=== PATIENT | female | born 1980 | race Caucasian/White ===

== ENCOUNTER → 2017-07-10 | Outpatient (CLI) | payer BC | LOC: FIMAGING 08:17 | PROVIDERS: ATTEND Surgery | DX: Z12.31 Encounter for screening mammogram for malignant neoplasm of breast (principal); D24.2 Benign neoplasm of left breast | CPT/HCPCS: G0202 ==

== ENCOUNTER 2018-07-23 11:15 | Observation (INO) | payer BC ==
[2018-07-23] MEDS ORDERED: LOPERAMIDE HCL 2 MG CAP PO PRN (11:35)
[2018-07-23] MEDS ORDERED: ONDANSETRON 4 MG/2 ML VIAL IVP PRN (11:36)
[2018-07-23] MEDS ORDERED: LR 1,000 ML IV SCH (12:00)
[2018-07-23 12:27] LABS: PLATELET COUNT 218 10^3/uL (150-400)
[2018-07-23] MEDS ORDERED: ONDANSETRON 4 MG/2 ML VIAL ONE (12:36)
--- NOTE | 2018-07-23 13:18 | PDGENHP ---
History and Physical History and Physical: CARE: [facility] HPI: Patient is a 37 yo G 3 P 1 at 38.1 wks ega who presents to L&D with complaints of diarrhea and worsening nausea/vomiting or last 2 days. Is able to eat/drink , but states she has vomited X2, and has just felt constant nausea. She last had a loose stool at 7 am this morning. Denies being exposed to anyone with a GI illness, although was at a public pool with her family just before her symptoms started. Endorses good activity, denies LOF and VB. Had gestational hypertension with previous , is taking baby ASA daily - has been checking BP at home regularly and states her values run typically 120s/ 70s. BP in office this AM was 148/72 after a cervical exam and told she was being sent to the hospital. She has a history of a labile BP that is easily affected by stress/anxiety. She does endorse a mild headache today. EDC: 08/05/18 which is based on LMP: 10/29/17 which is known and consistent with Ultrasound at 8 weeks. 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 - Prepregnancy BMI 41 - Low lying placenta - resolved at 28 weeks - h/p pp anxiety after first delivery - was treated with Zoloft (not currently treated) - h/o migraines - AMA - h/o gestational hypertension with first Review of Systems: Constitutional: Denies any fever, chills, or fatigue HEENT: denies any visual changes, difficulty swallowing, hearing loss Cardiovascular: Denies any chest pain, palpitations, leg swelling Respiratory: denies any cough, wheezing, or shortness of breathe GI: see HPI : denies any dysuria, urgency, frequency, vaginal bleeding Musculoskeletal: denies any muscle or bone pain Skin: denies any rashes Neuro: endorse a mild headache, denies lightheadedness, dizziness, or loss of consciousness Psychiatric: denies any depression, anxiety, or SI/HI thoughts HISTORY: Previous OB history: Term 41 weeks 2016 - gestational hypertension and pp anxiety Past medical history: Lu's thyroiditis, migraines, gluten intolerance Past surgical history: 2018 - breast bx - benign Family history: non-relevant Medications: PNV, Tirosint, baby ASA Allergies (list reaction): NKDA LABS: Rh: O pos ABS: Neg Rubella: Immune HbsAg: NR HIV: NR VDRL: NR 1hr: 96 GC: Neg Chlamydia: Neg Pap: 2/18 Normal GBS: neg BMI: (prepreg) 41 PHYSICAL EXAM: Constitutional: WN, A&Ox3 Skin: pink, warm, dry HEENT: normocephalic atraumatic, supple Heart: RRR, no murmur Chest: CTA-B Abdomen: Soft, nontender, gravid SVE: deferred Extremities: scant pedal edema, negative dayanara's sign Neuro: grossly normal Psych: normal affect assessment: Reassuring FHTs, baseline 130s +accels, no decels, moderate variability Contractions: toco rare contx Assessment: 1) 37 yo G 2 P 1 with IUP@ 38.1 weeks ega 2) 2 day nausea/vomiting/diarrhea - likely GI virus - feels better after zofran and 1 liter IV fluids 3) Meets criteria for preeclampsia - 2 additional BP values with systolic BP > 140, P/C ratio .56 - all other PE labs WNL 4) Category 1 EFM Plan: IOL recommended at this time due to pre-eclampsia - patient declines today due to issues with childcare and would like to wait until GI disturbance improves. Risks of delayed induction/delivery reviewed including worsening pre -eclampsia , eclampsia, pulmonary edema, brain injury, impaired liver and kidney function, risk to fetus, patient. Patient chooses to go home now - Will return to office in AM for NST and IOL tomorrow tadeo with cytotec ripening overnight. Will monitor BP at home and call with any BP's > 140/90, decreased movement, headache unresolved with Tylenol, epigastric pain, visual disturbances or increased edema.
== END 2018-07-23 16:30 | disposition home or self-care (01) ==
LOC: FLD 11:15
PROVIDERS: ADMIT Advanced Practice Midwife; ATTEND Advanced Practice Midwife
DX: R51 Headache (principal); R11.2 Nausea with vomiting, unspecified; E06.3 Autoimmune thyroiditis; Z3A.38 38 weeks gestation of pregnancy
CPT/HCPCS: 59025; G0378; J2405

== ENCOUNTER 2018-07-24 11:15 | Inpatient (IN) | payer BC ==
[2018-07-24] MEDS ORDERED: TERBUTALINE SULFATE 1 MG/ML VIAL IV PRN (11:39)
[2018-07-24] MEDS ORDERED: OXYTOCIN/RINGERS LACTATE 1,000 ML IV PRN (11:39)
[2018-07-24] MEDS ORDERED: OLIVE OIL 118 ML BTL MISC PRN (11:39)
[2018-07-24] MEDS ORDERED: IBUPROFEN 600 MG TAB PO PRN (11:39)
[2018-07-24] MEDS ORDERED: LIDOCAINE 1% 300 MG/30 ML SDV SC PRN (11:39)
[2018-07-24] MEDS ORDERED: EPSOM SALT 454 GM TP PRN (11:39)
[2018-07-24] MEDS ORDERED: MISOPROSTOL 200 MCG TAB PR PRN (11:39)
--- NOTE | 2018-07-24 12:35 | PDGENHP ---
History and Physical History and Physical: [facility] Patient Name: LIANG ANG Rpt#: [id number] Unit Number: [id number] Attending: Clara Marin Adm Date: 07/23/18 ____ History and Physical History and Physical: CARE: [facility] HPI: Patient is a 37 yo G 3 P 1 at 38.1 wks ega who presents to L&D for induction of labor d/t elevated BP at term. Nausea and vomiting have resolved since yesterdays visit. Her NST was reactive in office today. Pt reports good activity, denies LOF and VB. Had gestational hypertension with previous , is taking baby ASA daily - has been checking BP at home regularly and states her values run typically 120s/70s. BP in office this AM was 161/92 told she was being sent to the hospital for induction of labor instead of waiting until tonight. She has a history of a labile BP that is easily affected by stress/anxiety. She does report a mild headache today. She is tolerating PO hydration and eating a BRAT diet today. EDC: 08/05/18 which is based on LMP: 10/29/17 which is known and consistent with Ultrasound at 8 weeks. 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 - Prepregnancy BMI 41 - Low lying placenta - resolved at 28 weeks - h/p pp anxiety after first delivery - was treated with Zoloft (not currently treated) - h/o migraines - AMA - h/o gestational hypertension with first Review of Systems: Constitutional: Denies any fever, chills, or fatigue HEENT: denies any visual changes, difficulty swallowing, hearing loss Cardiovascular: Denies any chest pain, palpitations, leg swelling Respiratory: denies any cough, wheezing, or shortness of breathe GI: see HPI : denies any dysuria, urgency, frequency, vaginal bleeding Musculoskeletal: denies any muscle or bone pain Skin: denies any rashes Neuro: endorse a mild headache, denies lightheadedness, dizziness, or loss of consciousness Psychiatric: denies any depression, anxiety, or SI/HI thoughts HISTORY: Previous OB history: Term 41 weeks 2016 - gestational hypertension and pp anxiety Past medical history: Lu's thyroiditis, migraines, gluten intolerance Past surgical history: 2018 - breast bx - benign Family history: non-relevant Medications: PNV, Tirosint, baby ASA Allergies (list reaction): NKDA LABS: Rh: O pos ABS: Neg Rubella: Immune HbsAg: NR HIV: NR VDRL: NR 1hr: 96 GC: Neg Chlamydia: Neg Pap: 2/18 Normal GBS: neg BMI: (prepreg) 41 PHYSICAL EXAM: Constitutional: WN, A&Ox3 Skin: pink, warm, dry HEENT: normocephalic atraumatic, supple Heart: RRR, no murmur Chest: CTA-B Abdomen: Soft, nontender, gravid SVE: deferred Extremities: scant pedal edema, negative dayanara's sign Neuro: grossly normal Psych: normal affect assessment: Reassuring FHTs, baseline 130s +accels, no decels, moderate variability Contractions: toco occasional contx Assessment: 1) 37 yo G 2 P 1 with IUP@ 38.1 weeks ega 2) Meets criteria for preeclampsia - 2 additional BP values with systolic BP > 140, P/C ratio .56 - all other PE labs WNL 4) Category 1 EFM Plan: IOL recommended at this time due to pre-eclampsia. Serial BP wnl since arrival at hospital. Anticipate . Plan discussed with Danya Carvalho MD and she agrees with plan.
[2018-07-24 12:50] LABS: PLATELET COUNT 216 10^3/uL (150-400)
[2018-07-24] MEDS: LR 1,000 ML IV PRN (13:43)
[2018-07-24] MEDS: MISOPROSTOL 25 MCG CAP VG PRN ×2 (15:15→19:37)
[2018-07-24] MEDS ORDERED: PROMETHAZINE HCL 25 MG/ML INJ IVP PRN (15:49)
--- NOTE | 2018-07-24 15:52 | SOAPPROG ---
SOAP Progress Note Assessment/Plan: Assessment: 1) Term IUP 2) Elevated BP 3) Medical induction of labor Plan: 1) Cytotec for cervical ripening. 07/24/18 15:50 07/24/18 15:56 Subjective: Pt comfortable. Denies contractions. FOB and Business Account Leader at bedside for support. Objective: Laboratory Results 07/24/18 12:30 07/24/18 12:30 VSS at this time. - Pending Discharge Pending Discharge Within 24 Hours: No Physical Exam - Physical Exam General Appearance: alert, no apparent distress ICD10 Worksheet Patient Problems: Problems Problem Status Onset AMA (advanced maternal age) multigravida 35+ Acute Elevated blood pressure affecting in third trimester, antepartum Acute Hypothyroidism Acute Obesity complicating in third trimester Acute Term Acute
[2018-07-24] MEDS ORDERED: AMMONIA AROMATIC 1 EACH AMP IH ONE (20:09)
[2018-07-24] MEDS ORDERED: LIDOCAINE 1% 300 MG/30 ML SDV ONE (20:09)
[2018-07-24] MEDS ORDERED: TERBUTALINE SULFATE 1 MG/ML VIAL ONE (20:09)
[2018-07-24] MEDS ORDERED: OLIVE OIL 118 ML BTL ONE (20:09)
[2018-07-24] MEDS ORDERED: OXYTOCIN 10 UNIT/ML VIAL ONE (20:10)
[2018-07-24] MEDS ORDERED: MISOPROSTOL 200 MCG TAB ONE (20:10)
--- NOTE | 2018-07-24 22:54 | OBPROG ---
Labor Progress Note Assessment/Plan: Assessment: 1) Term IUP 2) Elevated BP 3) Medical induction of labor Plan: 1) Cytotec for cervical ripening. 07/24/18 15:50 07/24/18 15:56 Subjective/Intrapartum Course: 07/24/18 22:52 Pt feeling more uterine cramping. Coping well with family and genomics scientist support. Denies LOF, VB. Objective: 07/24/18 12:30 07/24/18 12:30 Patient ABO/Rh O POSITIVE 07/24/18 12:30 Uric Acid 5.2 mg/dL (2.5-6.8) 07/24/18 12:30 Total Bilirubin 0.3 mg/dL (0.1-1.4) 07/24/18 12:30 Conjugated Bilirubin 0.0 mg/dL (0.0-0.5) 07/24/18 12:30 Unconjugated Bilirubin 0.3 mg/dL (0.0-1.1) 07/24/18 12:30 AST 29 IU/L (14-46) 07/24/18 12:30 ALT 33 IU/L (9-52) 07/24/18 12:30 Lactate Dehydrogenase 456 IU/L (313-618) 07/24/18 12:30 - SVE Dilation (cm): 2 Effacement (%): 50 Station: -2 Membranes: Intact - Contraction Pattern Assessment Current Contraction Pattern: Irregular - FHR Assessment Ritchie FHR (bpm): 125 FHR Pattern Variability: Moderate FHR Category: 1 - AP Antepartum Course: 07/24/18 22:54 Plan pitocin at 7 AM. Oxytocin Orders Assessment - Pre-Induction/Augmentation Assessment Gestational Age: 38 week(s) and 2 day(s) ICD10 Worksheet Patient Problems: Problems Problem Status Onset AMA (advanced maternal age) multigravida 35+ Acute Elevated blood pressure affecting in third trimester, antepartum Acute Hypothyroidism Acute Obesity complicating in third trimester Acute Term Acute
[2018-07-24] MEDS ORDERED: LR 500 ML IV PRN (22:56)
[2018-07-24] MEDS ORDERED: OXYTOCIN/RINGERS LACTATE 500 ML IV SCH (23:00)
[2018-07-25] MEDS: LEVOTHYROXINE SODIUM 125 MCG PO SCH (07:12)
[2018-07-25] MEDS: LR 1,000 ML IV PRN (08:06)
--- NOTE | 2018-07-25 08:44 | OBPROG ---
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 Coping well with family and face boss support. Denies LOF, VB. 07/25/18 10:10 Pt doing well, she is breathing through contractions, but states pain is 4/10. She does not desires any pain medication at this time. She states she was able to sleep some last night. FOB @ BS and supportive. carlton Strong, supportive. Objective: 07/24/18 12:30 07/24/18 12:30 Patient ABO/Rh O POSITIVE 07/24/18 12:30 Uric Acid 5.2 mg/dL (2.5-6.8) 07/24/18 12:30 Total Bilirubin 0.3 mg/dL (0.1-1.4) 07/24/18 12:30 Conjugated Bilirubin 0.0 mg/dL (0.0-0.5) 07/24/18 12:30 Unconjugated Bilirubin 0.3 mg/dL (0.0-1.1) 07/24/18 12:30 AST 29 IU/L (14-46) 07/24/18 12:30 ALT 33 IU/L (9-52) 07/24/18 12:30 Lactate Dehydrogenase 456 IU/L (313-618) 07/24/18 12:30 - SVE Dilation (cm): 3 Effacement (%): 50 Station: -2 Membranes: Intact (membranes swept) - Contraction Pattern Assessment Current Contraction Pattern: Irregular - AP Antepartum Course: 07/24/18 22:54 Plan pitocin at 7 AM. Oxytocin Orders Assessment - Pre-Induction/Augmentation Assessment Presentation: Vertex Gestational Age: 38 week(s) and 2 day(s) Gestational Age Determined By: Ultrasound, Last Menstral Period Membrane Status: Intact Current Contraction Pattern: Irregular - Haley's Score Dilation: 3-4cm Effacement: 40-50 Station: -2 Cervix: Medium Cervix Position: Mid Haley Score Total: 6 ICD10 Worksheet Patient Problems: Problems Problem Status Onset AMA (advanced maternal age) multigravida 35+ Acute Elevated blood pressure affecting in third trimester, antepartum Acute Hypothyroidism Acute Obesity complicating in third trimester Acute Term Acute
--- NOTE | 2018-07-25 14:37 | OBPROG ---
Labor Progress Note Assessment/Plan: Assessment: 1) Term IUP 2) Elevated BP 3) Medical induction of labor Plan: 1) Pitocin induction. 2) Epidural for pain management. 3) Plan AROM after epidural. 07/24/18 15:50 07/24/18 15:56 07/25/18 14:59 Subjective/Intrapartum Course: 07/24/18 22:52 Pt feeling more uterine cramping. Coping well with family and cook helper pastry support. Denies LOF, VB. 07/25/18 10:10 Pt doing well, she is breathing through contractions, but states pain is 4/10. She does not desires any pain medication at this time. She states she was able to sleep some last night. FOB @ BS and supportive. carlton Strong, supportive. 07/25/18 14:45 Pt is becoming more uncomfortable. Requests epidural prior to AROM. Anesthesia notified. Objective: 07/24/18 12:30 07/24/18 12:30 Patient ABO/Rh O POSITIVE 07/24/18 12:30 Uric Acid 5.2 mg/dL (2.5-6.8) 07/24/18 12:30 Total Bilirubin 0.3 mg/dL (0.1-1.4) 07/24/18 12:30 Conjugated Bilirubin 0.0 mg/dL (0.0-0.5) 07/24/18 12:30 Unconjugated Bilirubin 0.3 mg/dL (0.0-1.1) 07/24/18 12:30 AST 29 IU/L (14-46) 07/24/18 12:30 ALT 33 IU/L (9-52) 07/24/18 12:30 Lactate Dehydrogenase 456 IU/L (313-618) 07/24/18 12:30 - SVE Dilation (cm): 4 Effacement (%): 75 Station: -2 Membranes: Intact (membranes swept) - Contraction Pattern Assessment Current Contraction Pattern: Regular, Irregular - AP Antepartum Course: 07/24/18 22:54 Plan pitocin at 7 AM. CNM Assessment - Uterine Assessment Contraction Strength: Moderate Uterine Resting Tone: Palpates Soft Contraction Frequency (minutes): 4-5 min Contraction Duration (sec): 60 - Intermittent Auscultation Heart Rate Auscultated (bpm): 140 FHR Acceleration(s) Auscultated: Yes FHR Deceleration(s) Auscultated: No Oxytocin Orders Assessment - Pre-Induction/Augmentation Assessment Gestational Age: 38 week(s) and 2 day(s) ICD10 Worksheet Patient Problems: Problems Problem Status Onset AMA (advanced maternal age) multigravida 35+ Acute Elevated blood pressure affecting in third trimester, antepartum Acute Hypothyroidism Acute Obesity complicating in third trimester Acute Term Acute
[2018-07-25] MEDS ORDERED: fentaNYL 2MCG/ML/BUP 0.1% RTU 100 ML BAG EP ONE (15:12)
[2018-07-25] MEDS ORDERED: BUPIVACAINE 0.25% 30 ML SDV ONE (15:12)
[2018-07-25] MEDS ORDERED: PHENYLEPHRINE HCL 100 MCG/ML SYR ONE (15:12)
[2018-07-25] MEDS ORDERED: fentaNYL 100 MCG/2 ML INJ ONE (15:13)
[2018-07-25] MEDS ORDERED: ONDANSETRON 4 MG/2 ML VIAL IVP PRN (16:08)
[2018-07-25] MEDS ORDERED: PHENYLEPHRINE HCL 100 MCG/ML SYR IVP PRN (16:08)
--- NOTE | 2018-07-25 16:10 | POSTANESTH ---
Post Anesthetic Evaluation Cardiovascular Status: Normal, Stable Respiratory Status: Normal, Stable, Similar to Pre-op Cond. Level of Consciousness/Mental Status: Can Participate in Eval, Alert and Oriented Pain Control: Adequate, Prn Tx Ordered Nausea/Vomiting Control: Adequate, Prn Tx Ordered Complications Possibly Related to Anesthesia: None Noted
--- NOTE | 2018-07-25 16:21 | OBPROG ---
Labor Progress Note Assessment/Plan: Assessment: 1) Term IUP 2) Elevated BP 3) Medical induction of labor Plan: 1) Pitocin induction. 2) Epidural for pain management. 3) Plan AROM after epidural. 07/24/18 15:50 07/24/18 15:56 07/25/18 14:59 07/25/18 16:17 Pt comfortable with epidural, AROM, clear, blood tinged fluid. SVE 4/80/-2. Continue pitocin Subjective/Intrapartum Course: 07/24/18 22:52 Pt feeling more uterine cramping. Coping well with family and gardening supervisor support. Denies LOF, VB. 07/25/18 10:10 Pt doing well, she is breathing through contractions, but states pain is 4/10. She does not desires any pain medication at this time. She states she was able to sleep some last night. FOB @ BS and supportive. carlton Strong, supportive. Objective: 07/24/18 12:30 07/24/18 12:30 Patient ABO/Rh O POSITIVE 07/24/18 12:30 Uric Acid 5.2 mg/dL (2.5-6.8) 07/24/18 12:30 Total Bilirubin 0.3 mg/dL (0.1-1.4) 07/24/18 12:30 Conjugated Bilirubin 0.0 mg/dL (0.0-0.5) 07/24/18 12:30 Unconjugated Bilirubin 0.3 mg/dL (0.0-1.1) 07/24/18 12:30 AST 29 IU/L (14-46) 07/24/18 12:30 ALT 33 IU/L (9-52) 07/24/18 12:30 Lactate Dehydrogenase 456 IU/L (313-618) 07/24/18 12:30 VSS, afebrile. - SVE Dilation (cm): 4 Effacement (%): 90 Station: -2 Membranes: AROM, Intact (membranes swept) Amniotic Fluid Color: Clear, Bloody - Contraction Pattern Assessment Current Contraction Pattern: Irregular, Other (Specify) (not well observed on monitor) - Procedures Non-surgical Procedures: Amniotomy - AP Antepartum Course: 07/24/18 22:54 Plan pitocin at 7 AM. Oxytocin Orders Assessment - Pre-Induction/Augmentation Assessment Presentation: Vertex Gestational Age: 38 week(s) and 2 day(s) ICD10 Worksheet Patient Problems: Problems Problem Status Onset AMA (advanced maternal age) multigravida 35+ Acute Elevated blood pressure affecting in third trimester, antepartum Acute Hypothyroidism Acute Obesity complicating in third trimester Acute Term Acute
--- NOTE | 2018-07-25 16:29 | PREANESOB ---
Obstetric Pre-Anesthesia Info - General Info Proposed Procedure: Labor and delivery with pitocin. : 2 Para: 0 GLADIS: 08/05/18 Gestational Age: 38 week(s) and 2 day(s) - Info Status: Full Term Monitors: External FHR Baseline (bpm): 150 FHR Pattern: Reassuring - Labor Status Cervical Dilation per last OB SVE: 3 Station per last OB SVE: -2 Pitocin: In Use PIH: Mild Indications for Labor Analgesia: Induction of Labor, Pain Control Labor Epidural: Proposed Anesthesia ROS: Prior labor epidural, breast Bx, and wisdom teeth. Allergies/Adverse Reactions: Allergy/AdvReac Type Severity Reaction Status Date / Time No Known Allergies Allergy Unverified 07/23/18 11:28 Home Medications: Medication Instructions Recorded Levothyroxine Sodium [Tirosint] 125 mcg PO DAILY 07/24/18 Vit27&Calcium/Iron/FA 1 each PO DAILY 07/24/18 [ Rx 1 Tablet (RX)] Visit Medications: Generic Name Dose Route Start Last Admin Trade Name Jeanq PRN Reason Stop Dose Admin Diphenhydramine HCl 25 - 50 mg 07/25/18 16:08 Benadryl Injection IVP 01/21/19 16:07 Q6HRS PRN Itching Oxytocin/Lactated Ringer's 1,000 mls @ 125 mls/hr 07/24/18 11:39 Pitocin 20 Units/Lr (Premix) IV PRN PRN Post bleeding Lactated Ringer's 500 mls @ 500 mls/hr 07/24/18 22:56 Lr IV 07/25/18 22:57 PRN PRN Maternal Hypotension Oxytocin/Lactated Ringer's 500 mls @ 0 mls/hr 07/24/18 23:00 07/25/18 08:06 Pitocin 30 Units/Lr (Premix) IV 01/20/19 22:59 500 mls CONT [place] Administration Protocol Per Protocol Fentanyl/Bupivacaine HCl 100 mls @ 0 mls/hr 07/25/18 16:30 Fentanyl/Bupivacaine/Ns 2 Mcg/Ml 0.1% (Premix EP 08/04/18 16:29 CONT C[place]TON Protocol As Directed Lactated Ringer's 500 mls @ 0 mls/hr 07/25/18 16:30 Lr IV 02/26/19 16:29 CONT C[place]TON As Directed Ibuprofen 600 mg 07/24/18 11:39 Motrin PO ONCE PRN post , pain Lidocaine HCl 300 mg 07/24/18 11:39 Lidocaine Hcl 1% SC 01/20/19 11:38 ONCE PRN episiotomy Magnesium Sulfate 454 gm 07/24/18 11:39 Epsom Salt TP 01/20/19 11:38 Q1H PRN perineal discomfort Miscellaneous Medication 125 mcg 07/25/18 07:00 07/25/18 07:12 Levothyroxine Sodium [Tirosint] PO 01/21/19 06:59 125 mcg DAILY@0700 [facility] Administration Misoprostol 800 - 1,000 mcg 07/24/18 11:39 Cytotec NC ONCE PRN Vaginal Atony/Bleeding [place] Oil 118 ml 07/24/18 11:39 Sweet Oil MISC 01/20/19 11:38 ONCE PRN perineal massage Ondansetron HCl 4 mg 07/25/18 16:08 Zofran IVP 07/26/18 16:07 Q4HRS PRN Nausea/Vomiting, Can't Take PO Phenylephrine HCl 100 mcg 07/25/18 16:08 Neosynephrine IVP 01/21/19 16:07 .Q2M PRN Hypotension Promethazine HCl 12.5 mg 07/24/18 15:49 07/24/18 16:05 Phenergan IVP 01/20/19 15:48 12.5 mg Q6HRS PRN Administration Achieve Desired Sedation Terbutaline Sulfate 0.25 mg 07/24/18 11:39 Brethine IV 01/20/19 11:38 ONCE PRN Tachysystole Discontinued Medications Generic Name Dose Route Start Last Admin Trade Name Freq PRN Reason Stop Dose Admin Ammonia (Aromatic Spirit) Confirm 07/24/18 20:09 Ammonia Aromatic Administered 07/24/18 20:10 Dose 1 each IH .STK-MED ONE Bupivacaine HCl Confirm 07/25/18 15:12 Sensorcaine 0.25% Sdv Administered 07/25/18 15:13 Dose 30 ml .ROUTE .STK-MED ONE Fentanyl Confirm 07/25/18 15:13 Sublimaze Administered 07/25/18 15:14 Dose 100 mcg .ROUTE .STK-MED ONE Fentanyl/Bupivacaine HCl Confirm 07/25/18 15:12 Fentanyl/Bupivacaine/Ns 2 Mcg/Ml 0.1% (Premix Administered 07/25/18 15:13 Dose 100 ml EP .STK-MED ONE Lactated Ringer's 1,000 mls @ 0 mls/hr 07/24/18 11:39 07/25/18 08:06 Lr IV 07/25/18 11:38 1,000 mls PRN PRN Administration SEE PROTOCOL CONDITIONS Protocol Per Protocol Lidocaine HCl Confirm 07/24/18 20:09 Lidocaine Hcl 1% Administered 07/24/18 20:10 Dose 300 mg .ROUTE .STK-MED ONE Miscellaneous Medication 125 mcg 07/26/18 07:00 Levothyroxine Sodium [Tirosint] PO 01/22/19 06:59 DAILY@0700 [place] Misoprostol 25 mcg 07/24/18 14:22 07/24/18 19:37 Cytotec VG 07/25/18 06:21 25 mcg Q4H PRN Administration labor induction Misoprostol Confirm 07/24/18 20:10 Cytotec Administered 07/24/18 20:11 Dose 1,000 mcg .ROUTE .STK-MED ONE [place] Oil Confirm 07/24/18 20:09 Sweet Oil Administered 07/24/18 20:10 Dose 118 ml .ROUTE .STK-MED ONE Oxytocin Confirm 07/24/18 20:10 Pitocin Administered 07/24/18 20:11 Dose 40 unit .ROUTE .STK-MED ONE Phenylephrine HCl Confirm 07/25/18 15:12 Neosynephrine Administered 07/25/18 15:13 Dose 1,000 mcg .ROUTE .STK-MED ONE Terbutaline Sulfate Confirm 07/24/18 20:09 Brethine Administered 07/24/18 20:10 Dose 1 mg .ROUTE .STK-MED ONE - Anesthesia History Response to Local Anesthetics: Normal Anesthesia & Operative History: No Prior Problems (Narcotics cause nausea and vomiting.) - Social History Substance Use/Abuse: Denies - Vital Signs Blood Pressure: 128/72 Heart Rate: 63 Height/Weight (Nursing): Height 167.64 cm Weight 130.181 kg - Focused Exam Neck exam: FROM Mallampati Score: Class 4 Mouth exam: normal dental/mouth exam, small mouth opening Pulmonary: no respiratory distress Cardiovascular: regular rate and rhythym Labs: 07/24/18 12:30 07/24/18 12:30 Patient ABO/Rh O POSITIVE 07/24/18 12:30 Uric Acid 5.2 mg/dL (2.5-6.8) 07/24/18 12:30 Total Bilirubin 0.3 mg/dL (0.1-1.4) 07/24/18 12:30 Conjugated Bilirubin 0.0 mg/dL (0.0-0.5) 07/24/18 12:30 Unconjugated Bilirubin 0.3 mg/dL (0.0-1.1) 07/24/18 12:30 AST 29 IU/L (14-46) 07/24/18 12:30 ALT 33 IU/L (9-52) 07/24/18 12:30 Lactate Dehydrogenase 456 IU/L (313-618) 07/24/18 12:30 - Plan Anesthetic Plan: MATTIE Consent Signed and on Chart: Yes Patient/Guardian Understands and Agrees to Plan: Yes Urgent/Emergent Case: Anes eval completed preop but documented later for safe timely pt care
[2018-07-25] MEDS ORDERED: fentaNYL 2MCG/ML/BUP 0.1% RTU 100 ML EP SCH (16:30)
[2018-07-25] MEDS ORDERED: LR 500 ML IV SCH (16:30)
[2018-07-25] MEDS ORDERED: SIMETHICONE 80 MG TAB CHEW PO PRN (19:45)
[2018-07-25] MEDS ORDERED: HYDROCODONE/APAP 5/325 TAB PO PRN (19:45)
[2018-07-25] MEDS ORDERED: HYDROCORTISONE 0.5% CREAM TP PRN (19:45)
--- NOTE | 2018-07-25 19:52 | OBDEL ---
Info Type: Vaginal Presentation at Delivery: Vertex L&D Analgesia/Anesthesia Type: Epidural GBS+: No Intrapartum Medications: Generic Name Dose Route Start Last Admin Trade Name Freq PRN Reason Stop Dose Admin Oxytocin/Lactated Ringer's 500 mls @ 0 mls/hr 07/24/18 23:00 07/25/18 08:06 Pitocin 30 Units/Lr (Premix) IV 01/20/19 22:59 500 mls CONT CLAYTON Administration Protocol Per Protocol Miscellaneous Medication 125 mcg 07/25/18 07:00 07/25/18 07:12 Levothyroxine Sodium [Tirosint] PO 01/21/19 06:59 125 mcg DAILY@0700 CLAYTON Administration Promethazine HCl 12.5 mg 07/24/18 15:49 07/24/18 16:05 Phenergan IVP 01/20/19 15:48 12.5 mg Q6HRS PRN Administration Achieve Desired Sedation Discontinued Medications Generic Name Dose Route Start Last Admin Trade Name Freq PRN Reason Stop Dose Admin Lactated Ringer's 1,000 mls @ 0 mls/hr 07/24/18 11:39 07/25/18 08:06 Lr IV 07/25/18 11:38 1,000 mls PRN PRN Administration SEE PROTOCOL CONDITIONS Protocol Per Protocol Misoprostol 25 mcg 07/24/18 14:22 07/24/18 19:37 Cytotec VG 07/25/18 06:21 25 mcg Q4H PRN Administration labor induction - Care Provider Auto Body Man/BUILD MANAGER: Mildred English - Hospital Course Intrapartum: 07/24/18 22:52 Pt feeling more uterine cramping. Coping well with family and construction or leak gang laborer support. Denies LOF, VB. 07/25/18 10:10 Pt doing well, she is breathing through contractions, but states pain is 4/10. She does not desires any pain medication at this time. She states she was able to sleep some last night. FOB @ BS and supportive. Sutay, construction or leak gang laborer, supportive. Indications for Delivery: Preeclampsia Mild (gestational hypertension) Vaginal Delivery - Delivery Provider Delivery Physician/CNM: Freida Delarosa Proctoring Provider: Susy Qureshi - Labor and Delivery Onset of Contractions Date: 07/25/18 Onset of Contractions Time: 15:30 Onset of Contractions Type: Induced Rupture of Membranes Date: 07/25/18 Rupture of Membranes Time: 16:00 Rupture of Membranes Type: Artificial Amniotic Fluid Color: Clear (clear fluid, no meconium), Meconium Stained, Bloody Dilation Complete Date: 07/25/18 Dilation Complete Time: 18:30 Placenta Delivery Date: 07/25/18 Placenta Delivery Time: 19:37 Total Hours of Labor: 4 Non-surgical Procedures: Amniotomy, FSE Laceration: 1st Degree (no repair) Vaginal Sponge Count Correct: Yes Vaginal Needle Count Correct: Yes Vaginal Sweep Performed: Yes EBL: 250 Delivery Events: None - Medications Labor Augmentation/Induction Methods Used: Pitocin, Misoprostol Labor Augmentation/Induction Indication: Other (Specify) (gestational hypertension) [place] Data GLADIS: 08/05/18 Gestational Age: 38 week(s) and 3 day(s) Ritchie Delivery Date: 07/25/18 Delivery Time: 17:31 Sex of : Male Score (1 Min): 8 Score (5 Min): 9 ICD10 Worksheet Patient Problems: Problems Problem Status Onset AMA (advanced maternal age) multigravida 35+ Acute Elevated blood pressure affecting in third trimester, antepartum Acute Hypothyroidism Acute (normal spontaneous vaginal delivery) Acute Obesity complicating in third trimester Acute Term Acute - ICD10 Problem Qualifiers (1) (normal spontaneous vaginal delivery)
[2018-07-26] MEDS: ACETAMINOPHEN 325 MG TAB PO SCH ×5 (00:46→21:19)
[2018-07-26] MEDS: IBUPROFEN 600 MG TAB PO SCH ×4 (02:51→21:18)
[2018-07-26] MEDS ORDERED: LEVOTHYROXINE 125 MCG TAB PO SCH (06:00)
[2018-07-26] MEDS: LEVOTHYROXINE SODIUM 125 MCG PO SCH (06:50)
[2018-07-26] MEDS ORDERED: LEVOTHYROXINE SODIUM 125 MCG PO SCH (07:00)
[2018-07-26] MEDS: DOCUSATE SODIUM 100 MG CAP PO PRN ×2 (08:55→21:21)
--- NOTE | 2018-07-26 18:07 | OBPP ---
Progress Note Assessment/Plan: Assessment: ppd# 1 s/p induction for gestational hypertension - stable normal blood pressures now breast feeding baby under bili lights hx post anxiety - mood stable now Plan: routine post care mood precautions 07/26/18 18:04 Subjective/ Course: 07/26/18 18:06 patient is doing well. pain is well controlled. normal lochia. denies headache and changes in vision. blood pressures stable. breast feeding is going well . baby under bili lights. mood stable Objective: 07/24/18 12:30 07/24/18 12:30 Patient ABO/Rh O POSITIVE 07/24/18 12:30 Uric Acid 5.2 mg/dL (2.5-6.8) 07/24/18 12:30 Total Bilirubin 0.3 mg/dL (0.1-1.4) 07/24/18 12:30 Conjugated Bilirubin 0.0 mg/dL (0.0-0.5) 07/24/18 12:30 Unconjugated Bilirubin 0.3 mg/dL (0.0-1.1) 07/24/18 12:30 AST 29 IU/L (14-46) 07/24/18 12:30 ALT 33 IU/L (9-52) 07/24/18 12:30 Lactate Dehydrogenase 456 IU/L (313-618) 07/24/18 12:30 Temp Pulse Resp BP Pulse Ox 36.4 C 101 H 15 128/82 H 94 07/26/18 15:33 07/26/18 15:33 07/26/18 15:33 07/26/18 15:33 07/26/18 15:33 Physical Exam - Physical Exam Respiratory: chest non-tender, lungs clear, normal breath sounds Cardiac/Chest: normal peripheral pulses, regular rate, rhythm Abdomen: normal bowel sounds, non-tender, other (fundus firm and non tender) Extremities: normal range of motion, non-tender, normal inspection, normal capillary refill Skin: normal color, warm/dry Neuro/Psych: no motor/sensory deficits, alert, normal mood/affect, oriented x 3
[2018-07-27] MEDS: IBUPROFEN 600 MG TAB PO SCH ×2 (03:06→09:36)
[2018-07-27] MEDS: ACETAMINOPHEN 325 MG TAB PO SCH ×2 (03:06→09:30)
[2018-07-27] MEDS: LEVOTHYROXINE SODIUM 125 MCG PO SCH (06:35)
[2018-07-27 08:07] VITALS: BP 122/79
[2018-07-27] MEDS: DOCUSATE SODIUM 100 MG CAP PO PRN (09:30)
--- NOTE | 2018-07-27 11:11 | OBPP ---
Progress Note Assessment/Plan: Assessment: 37 y/o PPD #2 s/p IOL secondary to Gestational HTN. Plan: D/c home today with Rx Ibuprofen, Hydrocotisone cream, and instructions to use Colace. support and outpatient plan with Peds for jaundice in baby. Follow up at [facility] this week for a BP check and I again reviewed pre eclampsia precautions and when to call. 07/27/18 11:08 Subjective/ Course: 07/26/18 18:06 patient is doing well. pain is well controlled. normal lochia. denies headache and changes in vision. blood pressures stable. breast feeding is going well . baby under bili lights. mood stable 07/27/18 11:06 Pt is doing well this am. They are ready to d/c home. Baby is jaundice and sleepy and they have had issues with breast feeding. She has arranged a pump, bili blanket and donor milk to go home. She has hemorrhoids and edema, and some cramping all controlled by Ibuprofen. She is ambulating and voiding and had a normal BM today. She has min lochia. Objective: 07/24/18 12:30 07/24/18 12:30 Patient ABO/Rh O POSITIVE 07/24/18 12:30 Uric Acid 5.2 mg/dL (2.5-6.8) 07/24/18 12:30 Total Bilirubin 0.3 mg/dL (0.1-1.4) 07/24/18 12:30 Conjugated Bilirubin 0.0 mg/dL (0.0-0.5) 07/24/18 12:30 Unconjugated Bilirubin 0.3 mg/dL (0.0-1.1) 07/24/18 12:30 AST 29 IU/L (14-46) 07/24/18 12:30 ALT 33 IU/L (9-52) 07/24/18 12:30 Lactate Dehydrogenase 456 IU/L (313-618) 07/24/18 12:30 Temp Pulse Resp BP Pulse Ox 36.2 C 87 16 122/79 H 94 07/27/18 08:00 07/27/18 08:00 07/27/18 08:00 07/27/18 08:00 07/27/18 08:00 Uterine Position/Fundal Height: Umbilicus -2 Uterine Tone: Firm Physical Exam - Physical Exam General Appearance: alert, no apparent distress Neck: non-tender, full range of motion, supple Respiratory: chest non-tender, lungs clear, normal breath sounds Cardiac/Chest: regular rate, rhythm Abdomen: normal bowel sounds Extremities: swelling (tr), Gill's sign (neg)
--- NOTE | 2018-07-27 11:11 | OBGCSDC ---
General Delivery Information - General Info : 2 Para: 1 Abortions: 0 Type: Vaginal L&D Analgesia/Anesthesia Type: Epidural Admission Date: 07/24/18 Labs: Patient ABO/Rh O POSITIVE 07/24/18 12:30 Hct 36.4 % (38.0-47.0) L 07/24/18 12:30 - Hospital Course Antepartum: 07/24/18 22:54 Plan pitocin at 7 AM. Intrapartum: 07/24/18 22:52 Pt feeling more uterine cramping. Coping well with family and urology physician support. Denies LOF, VB. 07/25/18 10:10 Pt doing well, she is breathing through contractions, but states pain is 4/10. She does not desires any pain medication at this time. She states she was able to sleep some last night. FOB @ BS and supportive. Sutay, urology physician, supportive. : 07/26/18 18:06 patient is doing well. pain is well controlled. normal lochia. denies headache and changes in vision. blood pressures stable. breast feeding is going well . baby under bili lights. mood stable 07/27/18 11:06 Pt is doing well this am. They are ready to d/c home. Baby is jaundice and sleepy and they have had issues with breast feeding. She has arranged a pump, bili blanket and donor milk to go home. She has hemorrhoids and edema, and some cramping all controlled by Ibuprofen. She is ambulating and voiding and had a normal BM today. She has min lochia. Vaginal - Delivery Provider Delivery Physician/CNM: Freida Delarosa - Diagnosis Labor: Induced Rupture of Membranes Type: Artificial Amniotic Fluid Color: Clear (clear fluid, no meconium), Meconium Stained, Bloody Laceration: 1st Degree (no repair) Delivery Events: None - Procedures Non-surgical Procedures: Amniotomy, FSE - Delivery Non-surgical Procedures: Amniotomy, FSE EBL: 250 Data GLADIS: 08/05/18 Gestational Age: 38 week(s) and 5 day(s) Ritchie Delivery Date: 07/25/18 Delivery Time: 19:31 Sex of : Male [place] Weight (gm): 3532 kg Score (1 Min): 8 Score (5 Min): 9 Discharge Information - Discharge Information Prescriptions: Escitalopram Oxalate [Lexapro 10 MG] 10 mg PO DAILY #30 tab Hydrocortisone 0.5% [Hydrocortisone 0.5% cream (*)] 1 christopher TP QID PRN #30 cream PRN Reason: Hemorrhoids Ibuprofen [Motrin (*)] 600 mg PO Q6H #60 tab Condition: Good Instruction/Follow Up: One Week
[2018-07-27] MEDS ORDERED: ESCITALOPRAM OXALATE 10 MG TAB PO SCH (11:15)
== END 2018-07-27 13:15 | disposition home or self-care (01) | DRG 775 ==
LOC: FLD 11:15 → FOB 07-25 21:58
PROVIDERS: ADMIT Advanced Practice Midwife; ATTEND Advanced Practice Midwife
PROC: 10E0XZZ Delivery of Products of Conception, External Approach (ICD-10-PCS; principal; 2018-07-25)
PROC: 10907ZC Drainage of Amniotic Fluid, Therapeutic from Products of Conception, Via Natural or Artificial Opening (ICD-10-PCS; principal; 2018-07-25)
PROC: 3E033VJ Introduction of Other Hormone into Peripheral Vein, Percutaneous Approach (ICD-10-PCS; principal; 2018-07-25)
DX: O13.4 Gestational [pregnancy-induced] hypertension without significant proteinuria, complicating childbirth (principal); Z68.41 Body mass index [BMI] 40.0-44.9, adult; Z37.0 Single live birth; Z3A.38 38 weeks gestation of pregnancy; O99.284 Endocrine, nutritional and metabolic diseases complicating childbirth; E06.3 Autoimmune thyroiditis; O70.0 First degree perineal laceration during delivery
CPT/HCPCS: J2370; J2550; J2590; J3010; J3105

== ENCOUNTER 2018-07-28 01:55 | Emergency (ER) | payer BC ==
--- NOTE | 2018-07-28 02:22 | EDPHY ---
H & P Stated Complaint: SOB, CP, heart racing since 5am - Personal History Current Tetanus/Diphtheria Vaccine: Yes - Medical/Surgical History Hx Asthma: No Hx Chronic Respiratory Disease: No Hx Diabetes: No Hx Cardiac Disease: No Hx Renal Disease: No Hx Cirrhosis: No Hx Alcoholism: No Hx HIV/AIDS: No Hx Splenectomy or Spleen Trauma: No Other PMH: gestation hypertension. post mood anxiety. hashimotos - Social History Smoking Status: Never smoked Time Seen by Provider: 07/28/18 02:07 HPI/ROS: CHIEF COMPLAINT: Chest pain dyspnea 3 days HISTORY OF PRESENT ILLNESS: 37-year-old female day 3 complaining of chest pain, dyspnea since 5:00 a.m. yesterday. Pain radiates to her left scapula. No syncope or near syncope. No nausea or vomiting. REVIEW OF SYSTEMS: 10 systems reviewed and negative with the exception of the elements mentioned in the history of present illness PAST MEDICAL & SURGICAL HISTORY: day 3 . No history of coagulopathic disorder. SOCIAL HISTORY: Nonsmoker. No cocaine use. FAMILY HISTORY: No family history of coagulopathic disorder premature coronary artery disease or sudden unexplained . PHYSICAL EXAM (Prior to examination, patient consented to physical exam, hands were washed and my usual and customary physical exam procedures followed) 1) GENERAL: Well-developed, well-nourished, alert and oriented. Appears to be in no acute distress. Speaking full sentences. 2) HEAD: Normocephalic, atraumatic 3) HEENT: Pupils equal, round, reactive to light bilaterally. Sclera anicteric. Nasopharynx, oropharynx, clear, no lesions. Moist Mucous membranes. Ears bilaterally with normal tympanic membranes. 4) NECK: Full range of motion, no meningeal signs. No carotid bruit 5) LUNGS: Clear auscultation bilaterally, no wheezes, no rhonchi, no retractions. 6) HEART: Regular rate and rhythm, no murmur, no heave, no gallop. 7) ABDOMEN: No guarding, no rebound, no focal tenderness, negative McBurney's, negative Du's, negative Rovsing's, negative peritoneal sign, negative Homans no palpable cord 8) MUSCULOSKELETAL: Moving all extremities, no focal areas of tenderness, no obvious trauma. No peripheral edema or discoloration. 9) BACK: No CVA tenderness, no midline vertebral tenderness, no fluctuance, no step-off, no obvious trauma, no visual or palpable abnormality. 10) SKIN: No rash, no petechiae. 11) Psychiatric: Patient is oriented X 3, there is no agitation. DIFFERENTIAL DIAGNOSIS: In no particular order, including but not limited to myocardial ischemia, pulmonary embolus, chest wall pain, pleural inflammation and pulmonary infectious causes. (Annemarie Brenner) Constitutional: Initial Vital Signs Temperature (C) 36.6 C 07/28/18 02:05 Heart Rate 99 07/28/18 02:05 Respiratory Rate 18 07/28/18 02:05 Blood Pressure 158/84 H 07/28/18 02:05 O2 Sat (%) 96 07/28/18 02:05 O2 Delivery Mode Room Air Allergies/Adverse Reactions: No Known Allergies Allergy (Verified 07/28/18 02:06) Home Medications: Medication Instructions Recorded Levothyroxine Sodium [Tirosint] 125 mcg PO DAILY 07/24/18 Hydrocortisone 0.5% 1 christopher TP QID PRN #30 cream 07/27/18 [Hydrocortisone 0.5% cream (*)] Ibuprofen [Motrin (*)] 600 mg PO Q6H #60 tab 07/27/18 Medical Decision Making ED Course/Re-evaluation: 2:19 a.m.: Patient is post day 3 complaining of chest pain, dyspnea. High pretest probability for pulmonary embolus. Recommend move directly to CT angiography.. I saw this patient independently based on established practice protocols. Care of patient under supervision of secondary supervising physician Dr Rodriguez with whom I discussed case. (Annemarie Brenner) CT angiogram of the chest shows no evidence of central pulmonary embolism. However somewhat limited study for subsegmental areas. Patient's troponin Noted be negative, Repeat EKG time 5:57 a.m., sinus rhythm rate of 80, T-wave abnormality lead 3. Otherwise no acute ischemia. No ST elevation or ST depression. This is unchanged from previous EKG. 0604: Patient is eager to be discharged from the emergency room she states she feels fine she denies any chest pain or shortness of breath. However given that her CT angiogram is unable to visualize her subsegmental arteries will proceed with bilateral lower extremity ultrasound to make sure she does not have DVTs. If these are normal I feel confident that she can be discharged safely. Unlikely to have pulmonary embolism given no central P E. And if ultrasounds of her leg showed no DVT I feel comfortable allowing to be discharged home. However she does understand return emergency room she develops worsening chest pain, shortness of breath, or not feeling well. Ultrasound bilateral lower extremity shows no evidence of DVT called to me by Dr. Mena. Given this patient has unremarkable ultrasound bilateral lower extremity additionally CT angiogram does not show an evidence of a central pulmonary embolism. A EKG that is nonischemic and 2nd EKG that is unchanged from her previous EK G. 2-troponins. She has been monitored here in emergency room for multiple hours with no signs of cardiac arrhythmia. She is not hypoxic she is not tachycardic. I do feel comfortable allowing to go home. Return precautions discussed with her she understands return emergency room if develops chest pain, shortness of breath worsening symptoms. (Suleiman Rodriguez) - Data Points Laboratory Results: Laboratory Results 07/28/18 02:17 07/28/18 02:17 07/28/18 07/28/18 07/28/18 06:04 02:24 02:22 WBC RBC Hgb POC Hgb 11.6 gm/dL L gm/dL (12.6-16.3) Hct POC Hct 34 % L % (38-47) MCV MCH MCHC RDW Plt Count MPV Neut % (Auto) Lymph % (Auto) Archer % (Auto) Eos % (Auto) Baso % (Auto) Nucleat RBC Rel Count Absolute Neuts (auto) Absolute Lymphs (auto) Absolute Monos (auto) Absolute Eos (auto) Absolute Basos (auto) Absolute Nucleated RBC Immature Gran % Immature Gran # PT INR APTT POC Sodium 141 mEq/L mEq/L (135-145) Sodium POC Potassium 3.7 mEq/L mEq/L (3.3-5.0) Potassium POC Chloride 105 mEq/L mEq/L (97-110) Chloride Carbon Dioxide Anion Gap POC BUN 13 mg/dL mg/dL (7-23) BUN Creatinine POC Creatinine 0.6 mg/dL mg/dL (0.6-1.0) Estimated GFR Glucose POC Glucose 98 mg/dL mg/dL (70-100) Calcium POC Troponin I 0.02 ng/mL ng/mL 0.01 ng/mL ng/mL (0.00-0.08) (0.00-0.08) 07/28/18 07/28/18 07/28/18 02:17 02:17 02:17 WBC 9.91 10^3/uL H 10^3/uL (3.80-9.50) RBC 3.95 10^6/uL L 10^6/uL (4.18-5.33) Hgb 11.0 g/dL L g/dL (12.6-16.3) POC Hgb Hct 34.7 % L % (38.0-47.0) POC Hct MCV 87.8 fL fL (81.5-99.8) MCH 27.8 pg L pg (27.9-34.1) MCHC 31.7 g/dL L g/dL (32.4-36.7) RDW 16.1 % H % (11.5-15.2) Plt Count 235 10^3/uL 10^3/uL (150-400) MPV 10.0 fL fL (8.7-11.7) Neut % (Auto) 71.4 % % (39.3-74.2) Lymph % (Auto) 19.9 % % (15.0-45.0) Archer % (Auto) 5.9 % % (4.5-13.0) Eos % (Auto) 2.0 % % (0.6-7.6) Baso % (Auto) 0.3 % % (0.3-1.7) Nucleat RBC Rel Count 0.0 % % (0.0-0.2) Absolute Neuts (auto) 7.08 10^3/uL H 10^3/uL (1.70-6.50) Absolute Lymphs (auto) 1.97 10^3/uL 10^3/uL (1.00-3.00) Absolute Monos (auto) 0.58 10^3/uL 10^3/uL (0.30-0.80) Absolute Eos (auto) 0.20 10^3/uL 10^3/uL (0.03-0.40) Absolute Basos (auto) 0.03 10^3/uL 10^3/uL (0.02-0.10) Absolute Nucleated RBC 0.00 10^3/uL 10^3/uL (0-0.01) Immature Gran % 0.5 % % (0.0-1.1) Immature Gran # 0.05 10^3/uL 10^3/uL (0.00-0.10) PT 12.1 SEC SEC (12.0-15.0) INR 0.87 (0.83-1.16) APTT 26.3 SEC SEC (23.0-38.0) POC Sodium Sodium 140 mEq/L mEq/L (135-145) POC Potassium Potassium 3.9 mEq/L mEq/L (3.3-5.0) POC Chloride Chloride 106 mEq/L mEq/L (97-110) Carbon Dioxide 25 mEq/l mEq/l (22-31) Anion Gap 9 mEq/L mEq/L (8-16) POC BUN BUN 14 mg/dL mg/dL (7-23) Creatinine 0.6 mg/dL mg/dL (0.6-1.0) POC Creatinine Estimated GFR > 60 Glucose 96 mg/dL mg/dL (70-100) POC Glucose Calcium 10.0 mg/dL mg/dL (8.5-10.4) POC Troponin I Point of Care Test Results: Chemistry 07/28/18 07/28/18 07/28/18 06:04 02:24 02:22 POC Sodium 141 mEq/L mEq/L (135-145) POC Potassium 3.7 mEq/L mEq/L (3.3-5.0) POC Chloride 105 mEq/L mEq/L (97-110) POC BUN 13 mg/dL mg/dL (7-23) POC Creatinine 0.6 mg/dL mg/dL (0.6-1.0) POC Glucose 98 mg/dL mg/dL (70-100) POC Troponin I 0.02 ng/mL ng/mL 0.01 ng/mL ng/mL (0.00-0.08) (0.00-0.08) ISTAT H&H 07/28/18 02:22 POC Hgb 11.6 gm/dL L gm/dL (12.6-16.3) POC Hct 34 % L % (38-47) Departure - Departure Disposition: Home, Routine, Self-Care Clinical Impression: Chest pain Qualifiers: Chest pain type: unspecified Qualified Code(s): R07.9 - Chest pain, unspecified Condition: Good Instructions: Chest Pain (ED) Additional Instructions: Seek medical attention if you develop new or worsening chest pain, if you develop new or worsening shortness of breath, or any other symptoms that concern you. Referrals: Damion Sidhu DO [Medical Doctor] - As per Instructions
[2018-07-28] MEDS ORDERED: IOPAMIDOL (ISOVUE 370) 100 ML BTL IV ONE (02:39)
[2018-07-28 02:40] LABS: PLATELET COUNT 235 10^3/uL (150-400)
[2018-07-28 02:47] LABS: INR 0.87 (0.83-1.16); PROTIME(PATIENT) 12.1 SEC (12.0-15.0)
[2018-07-28 06:44] VITALS: BP 136/88
--- NOTE | 2018-07-28 06:59 | CPEKG ---
Test Reason : OPEN Blood Pressure : / mmHG Vent. Rate : 080 BPM Atrial Rate : 080 BPM P-R Int : 139 ms QRS Dur : 074 ms QT Int : 337 ms P-R-T Axes : 043 022 -03 degrees QTc Int : 389 ms Sinus rhythm Borderline T abnormalities, inferior leads Confirmed by Suleiman Rodriguez ([id number]) on 07/28/2018 6:58:54 AM Referred By: Confirmed By:Suleiman Rodriguez
--- NOTE | 2018-07-28 11:05 | CPEKG ---
Test Reason : OPEN Blood Pressure : / mmHG Vent. Rate : 088 BPM Atrial Rate : 086 BPM P-R Int : 139 ms QRS Dur : 076 ms QT Int : 330 ms P-R-T Axes : 049 028 000 degrees QTc Int : 400 ms Sinus rhythm Confirmed by Flavio Joe ([id number]) on 07/28/2018 11:05:39 AM Referred By: Confirmed By:Flavio Joe
== END 2018-07-28 06:44 | disposition home or self-care (01) ==
DX: R07.9 Chest pain, unspecified (principal)
CPT/HCPCS: 82435-PO; 82565-PO; 82947-PO; 84132-PO; 84295-PO; 84484-PO; 84520-PO; 85014-PO; Q9967